=== PATIENT | male | born 1985 | race African-American/Black ===

== ENCOUNTER 2021-10-21 19:45 | Emergency (ER) | payer OTHER ==
[~2021-10-21] VITALS: Ht 172.7 cm; Wt 91.9 kg
[2021-10-21] MEDS ORDERED: LIDOCAINE 1% MDV 20ML VIAL SC ONE (21:35)
[2021-10-21 22:02] VITALS: BP 162/98
== END 2021-10-21 22:26 | disposition home or self-care (01) ==
LOC: M ED 19:45
DX: S61.011A Laceration without foreign body of right thumb without damage to nail, initial encounter (principal); W26.0XXA Contact with knife, initial encounter; Y92.9 Unspecified place or not applicable; Y93.9 Activity, unspecified; Y99.9 Unspecified external cause status